=== PATIENT | female | born 2000 | race Two or more races ===

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

== ENCOUNTER 2021-02-07 12:50 | Emergency (ER) | payer OTHER ==
[~2021-02-07] VITALS: Ht 157.5 cm; Wt 105.0 kg
[~2021-02-07 12:50] MED LIST changes: +NITR100C62 PO
--- NOTE | 2021-02-07 13:17 | PHYS DOC ---
Past Medical History Past Medical History: Anxiety Past Surgical History: No Surgical History Smoking Status: Never Smoker Alcohol Use: None Drug Use: None General Adult EDM: Chief Complaint: DIZZY/LIGHT HEADED HPI: HPI: Patient is a 20-year-old female presents emergency department with chief complaint of feeling dizzy 2 times yesterday lasted only a minute each time, patient denies feeling any triggers bringing on her dizziness. Patient reports she was just sitting watching TV when the dizziness came about, denies room spinning, reports she just felt off and "dizzy ". Patient also reports a nosebleed that started last night that lasted only a few minutes. Patient denies a history of nosebleeds. Patient denies recent illnesses, denies fever or chills, denied feeling chest pains, chest palpitations, shortness of breath. Patient denies chest or nasal congestion. Patient denies nausea, vomiting, diarrhea, constipation, or abdominal pains, denies headache, visual disturbances, syncopal or near syncopal episode. Patient denies vaginal discharge, denies rashes or lesions on or around her vagina, denies urinary pressure, increased urinary frequency, or urinary pain, or urinary burning. Reports her last muscle cycle was 4 months ago, reports having intermittent uterine bleeding that she relates to having her Implanon control placed. Is unsure if she could be . Denies STI concerns. Denies health history however reported having preeclampsia when she was . Denies taking prescription or [id number] medications at home. Denies loss of taste or loss of smell, denies other physical complaints or physical concerns. Review of Systems: Review of Systems: 14 body systems of review of systems have been reviewed. See HPI for pertinent positives and negative responses, otherwise all other systems are negative, nonpertinent or noncontributory. Constitutional: Negative except as outlined in HPI above. Skin: Negative except as outlined in HPI above. Eyes: Negative except as outlined in HPI above. HENT: Negative except as outlined in HPI above. Respiratory: Negative except as outlined in HPI above. Cardiovascular: Negative except as outlined in HPI above. GI: Negative except as outlined in HPI above. : Negative except as outlined in HPI above. Musculoskeletal: Negative except as outlined in HPI above. Integument: Negative except as outlined in HPI above. Neurologic: Negative except as outlined in HPI above. Endocrine: Negative except as outlined in HPI above. Lymphatic: Negative except as outlined in HPI above. Psychiatric: Negative except as outlined in HPI above. Heart Score: C/O Chest Pain: No Risk Factors: Risk Factors: DM, Current or recent (<one month) smoker, HTN, HLP, family history of CAD, obesity. Risk Scores: Score 0 - 3: 2.5% MACE over next 6 weeks - Discharge Home Score 4 - 6: 20.3% MACE over next 6 weeks - Admit for Clinical Observation Score 7 - 10: 72.7% MACE over next 6 weeks - Early Invasive Strategies Allergies: Allergies: Allergies Coded Allergies Type Severity Reaction Last Updated Verified No Known Drug Allergies 10/16/13 No Physical Exam: PE: Constitutional: Well developed, well nourished, no acute distress, non-toxic appearance. 20-year-old female in no apparent distress. HENT: Normocephalic, atraumatic, bilateral external ears normal, oropharynx moist, no oral exudates, nose normal. Moist bilateral nasal turbinates, bilateral TMs intact within normal limits, no deep tissue infectious process of the oropharynx appreciated, there is no uvular edema or deviation, no tonsillar edema or cobblestoning or erythema, no laryngeal edema. Patient is speaking in normal voice tones. No drooling, no trismus Eyes: Conjunctiva normal, no discharge. Neck: Normal range of motion, no stridor. No meningismus signs, no nuchal rigidity. Cardiovascular: No cyanosis appreciated, distal cap refill less than 2 seconds. Regular rate and rhythm. Lungs & Thorax: Patient is in no respiratory distress, no audible adventitious lung sounds appreciated. Lung sounds clear to auscultate all lung foster. Normal work of breathing. Abdomen: Nontender, no abnormalities noted. Skin: Warm, dry, no erythema, no rash. Back: No tenderness, no deformities. Extremities: No tenderness, no cyanosis, no clubbing, ROM intact, no edema. Neurologic: Alert and oriented X 3, normal motor function, normal sensory function, no focal deficits noted. Psychologic: Affect normal, judgement normal, mood normal. EKG: EKG: EKG performed at 1405 by ED nursing staff shows a normal sinus rhythm without other ectopy heart rate 75 bpm, [place] interval 0.148, QTc interval 0.411, no acute STEMI, no ACS, no acute ischemia appreciated, EKG interpreted by ED attending physician Dr. Bob. Radiology/Procedures: Radiology/Procedures: [] Course & Med Decision Making: Course & Med Decision Making Pertinent Labs and Imaging studies reviewed. (See chart for details) 20-year-old female, vital signs reviewed, presents to the emergency department concerning 2 episodes of dizziness yesterday during the day, and a nosebleed that happened during the evening. All symptoms have resolved prior to arrival to the emergency department. Patient currently denies any symptoms or discomfort. Physical examination is unremarkable. Will order UA and urine test related to patient's LMP 4 months ago and is unsure if she is . Will order EKG to rule out cardiac component, patient is neurologica lly intact. Denies headache. Upon review of patient's past history in this emergency department, patient borderline anemia, will order CBC, BMP to evaluate anemia and or electrolyte causes of dizzy spell. The patient's urine is not infected, she is not per urine test, CBC and BMP within normal limits, no concerning signs of anemia. Upon reevaluation of the patient, no reoccurring dizzy spells during ER stay, denies any current symptoms or complaints. Dizziness may may have a seasonal allergy component, discussed with patient recommending the use of [id number]-[id number] Zyrtec for allergies, use of saline nasal spray to keep nasal passages moist, strict follow-up with her primary care physician for ongoing symptoms. Strict return to ER precautions or concerns. Patient is amenable of immediate verbal understanding of discharge instructions and ED planning. Discussed with the patient all findings and diagnostic testing as well as the need to follow-up with their primary care provider for further evaluation and treatment or return to the ED if any new or worsening symptoms. Strict return precautions were also discussed at length, the patient voiced understanding and agreement with the discharge planning. The patient was nontoxic in appearance, in no apparent distress, and hemodynamically stable at the time of disposition. Dragon Disclaimer: Dragon Disclaimer: This electronic medical record was generated, in whole or in part, using a voice recognition dictation system. Departure Departure Impression: Primary Impression: Dizzy spells Additional Impression: Nosebleed Disposition: HOME / SELF CARE / HOMELESS Condition: GOOD Referrals: RACHELE BURRELL MD (PCP) Patient Instructions: Dizziness, Nose Drops, Saline, [id number], Nosebleed Additional Instructions: You were seen in the emergency department today for episodes of dizziness you experienced yesterday, you also reported a nosebleed yesterday. You were having none of the symptoms today in the emergency department. A urinalysis and urine test along blood work to review any infectious process or electrolyte imbalance that may have caused the symptoms. Your urine was not infected, you are not , your lab work was within normal limits. As we discussed this might be a seasonal allergy that caused your symptoms, we also discussed the use of saline nasal spray to keep the nasal passages moist to prevent any further bleeding. We discussed trying [id number] Zyrtec or Claritin for allergies. Please obtain and take as directed. Please obtain saline nasal spray and use as directed. Please follow-up with your primary care physician Dr. Burrell for further symptoms are ongoing problems. Return immediately to the emergency department for worsening symptoms or other concerns. Thank you for visiting our Emergency Department. It was a pleasure taking care of you today in the emergency department and we appreciate you trusting us with your care. If any additional problems come up don't hesitate to return to visit us. Please follow up with your primary care provider so they can plan additional care if needed and know about the problem that you had. If symptoms worsen come back to the Emergency Department. Any concerning symptoms that start such as chest pain, shortness of air, weakness or numbness on one side of the body, running high fevers or any other concerning symptoms return to the ER. EMERGENCY DEPARTMENT GENERAL DISCHARGE INSTRUCTIONS Thank you for coming to [facility] Emergency Department (ED) today and trusting us with you care. We trust that you had a positive experience in our Emergency Department. If you wish to speak to the department management, you may call the Director at [phone]. YOUR FOLLOW UP INSTRUCTIONS ARE FOLLOWS: 1. Do you have a private Doctor? If you do not have a private doctor, please ask for a resource list of physicians or clinics that may be able to assist you with follow up care. 2. The Emergency Physicain has interpreted your x-rays. The X-Ray specialist will also review them. If there is a change in the findings, you will be notified in 48 hours when at all possible. 3. A lab test or culture has been done, your results will be reviewed and you will be notified if you need a change in treatment. ADDITIONAL INSTRUCTIONS AND INFORMATION: 1. Your care today has been supervised by a physician who is specially trained in emergency care. Many problems require more than one evaluation for a complete diagnosis and treatment. We recommend that you schedule your follow up appointment as recommended to ensure complete treatment of you illness or injury. If you are unable to obtain follow up care and continue to have a problem, or if your condition worsens, we recommend that you return to the ED. 2. We are not able to safely determine your condition over the phone nor are we able to give sound medical advice over the phone. For these safety reasons, if you call for medical advice we will ask you to come to the ED for further evaluation. 3. If you have any questions regarding these discharge instructions please call the ED at [phone]. SAFETY INFORMATION: In the interest of safety, wellness, and injury prevention; we encourage you to wear your sealbelt, if you smoke; quite smoking, and we encourage family to use a protective helmet for bicycling and other sporting events that present an increased risk for head injury. IF YOUR SYMPTOMS WORSEN OR NEW SYMPTOMS DEVELOP, OR YOU HAVE CONCERNS ABOUT YOUR CONDITION; OR IF YOUR CONDITION WORSENS WHILE YOU ARE WAITING FOR YOUR FOLLOW UP APPOINTMENT; EITHER CONTACT YOUR PRIMARY CARE DOCTOR, THE PHYSICIAN WHOSE NAME AND NUMBER YOU WERE GIVEN, OR RETURN TO THE ED IMMEDIATELY. RACHELE WU APRN Feb 07, 2021 13:17
[2021-02-07 14:11] LABS: BILIRUBIN,URINE NEGATIVE (NEG); CLARITY,URINE CLEAR; COLOR,URINE YELLOW; NITRITE,URINE NEGATIVE (NEG); PROTEIN,URINE 100 mg/dL (NEG-TRACE); UROBILINOGEN,URINE 0.2 mg/dL (0.2 mg/dL)
[2021-02-07 14:16] LABS: U PREG PATIENT NEGATIVE (NEG)
[2021-02-07 14:24] LABS: BASO % 1 % (0-3); EOS # 0.1 x10^3/uL (0.0-0.7); EOS % 2 % (0-3); HEMOGLOBIN 12.8 g/dL (12.0-15.5); LYMPH # 1.1 x10^3/uL (1.0-4.8); LYMPH % 19 % (24-48); MEAN CORPUSCULAR HEMOGLOBIN 28 pg (25-35); MEAN CORPUSCULAR HGB CONC 34 g/dL (31-37); MEAN CORPUSCULAR VOLUME 82 fL (79-100); MONO # 0.4 x10^3/uL (0.0-1.1); MONO % 6 % (0-9); NEUT # 4.2 x10^3/uL (1.8-7.7); NEUT % 73 % (31-73); PLATELET COUNT 283 x10^3/uL (140-400); RED BLOOD COUNT 4.63 x10^6/uL (3.50-5.40); WHITE BLOOD COUNT 5.8 x10^3/uL (4.0-11.0)
[2021-02-07 14:34] LABS: BACTERIA,URINE MODERATE /HPF (0-FEW)
[2021-02-07 14:36] LABS: CALCIUM 8.4 mg/dL (8.5-10.1); CREATININE 0.7 mg/dL (0.6-1.0); GFR 107.8; POTASSIUM 3.9 mmol/L (3.5-5.1)
[2021-02-07 15:33] VITALS: BP 131/69
--- NOTE | 2021-02-08 01:41 | EKG ---
[facility] [address] [place] [address] Test Date: 2021-02-07 Test Time: 14:05:05 Pat Name: DANNY GAITAN Department: Room: Gender: F Case Picker: : 2000 Requested By: RACHELE WU Order Number: [id number] Reading MD: Measurements Intervals [place] Rate: 75 P: 33 VT: 148 QRS: 36 QRSD: 88 T: 16 QT: 366 QTc: 411 Interpretive Statements SINUS RHYTHM NORMAL ECG RI6.02 No previous ECG available for comparison
== END 2021-02-07 15:34 | disposition home or self-care (01) ==
LOC: ER 12:50
DX: R42 Dizziness and giddiness (principal); R04.0 Epistaxis; F41.9 Anxiety disorder, unspecified
CPT/HCPCS: 36415; 80048; 81001; 81025; 85025; 87086; 93005; 99284